=== PATIENT | female | born 1950 | race Caucasian/White ===

== ENCOUNTER 2016-06-23 08:53 | Outpatient (CLI) | payer BC | END 2016-06-23 08:54 | disposition home or self-care (01) | DX: R07.89 Other chest pain (principal); E78.5 Hyperlipidemia, unspecified ==

== ENCOUNTER 2016-07-27 09:45 | Outpatient (CLI) | payer BC | END 2016-07-27 09:46 | disposition home or self-care (01) | DX: R07.89 Other chest pain (principal); E78.5 Hyperlipidemia, unspecified ==

== ENCOUNTER 2017-07-12 08:00 | Outpatient (CLI) | payer BC, OTHER ==
[2017-07-12 18:10] LABS: H. PYLORIS ANTIGEN STL NEGATIVE (Negative)
== END 2017-07-12 08:01 | disposition home or self-care (01) ==
LOC: LAB.R 08:00
PROVIDERS: ATTEND Family Medicine
DX: K21.9 Gastro-esophageal reflux disease without esophagitis (principal)
CPT/HCPCS: 87338

== ENCOUNTER 2017-09-13 09:44 | Outpatient (CLI) | payer OTHER ==
[2017-09-13 18:19] LABS: ALBUMIN 4.1 g/dL (3.2-5.5); ALBUMIN/GLOBULIN RATIO 1.4 (1.0-2.2); BILIRUBIN,TOTAL 0.2 mg/dL (0.2-1.0); CALCIUM 9.3 mg/dL (8.5-10.3); CREATININE 0.6 mg/dL (0.4-1.0); TOTAL PROTEIN 7.1 g/dL (6.7-8.2)
[2017-09-13 18:22] LABS: BASOPHILS # (AUTO) 0.1 10^3/uL (0.0-0.1); BASOPHILS % (AUTO) 0.9 %; EOSINOPHILS # (AUTO) 0.2 10^3/uL (0.0-0.7); EOSINOPHILS % (AUTO) 3.1 %; HGB - HEMOGLOBIN 13.1 g/dL (12.0-16.0); LYMPHOCYTES # (AUTO) 2.7 10^3/uL (1.5-3.5); LYMPHOCYTES % (AUTO) 38.6 %; MEAN CORPUSCULAR HEMOGLOBIN 31.2 pg (27.0-31.0); MEAN CORPUSCULAR VOLUME 94.7 fL (81.0-99.0); MEAN PLATELET VOLUME 7.6 fL (7.9-10.8); MONOCYTES # (AUTO) 0.4 10^3/uL (0.0-1.0); MONOCYTES % (AUTO) 6.5 %; NEUTROPHILS # (AUTO) 3.5 10^3/uL (1.5-6.6); NEUTROPHILS % (AUTO) 50.9 %; PLT - PLATELET COUNT 320 10^3/uL (130-450); RED BLOOD COUNT 4.18 10^6/uL (4.20-5.40); WHITE BLOOD COUNT 6.9 x10^3/uL (4.8-10.8)
== END 2017-09-13 09:45 | disposition home or self-care (01) ==
LOC: LAB.F 09:44
PROVIDERS: ATTEND Physician Assistant Medical
DX: Z51.81 Encounter for therapeutic drug level monitoring (principal); Z79.890 Hormone replacement therapy
CPT/HCPCS: 36415; 80053; 82670; 85025

== ENCOUNTER 2017-11-27 11:26 | Outpatient (CLI) | payer OTHER | END 2017-11-27 11:27 | disposition home or self-care (01) | LOC: LAB.F 11:26 | PROVIDERS: ATTEND Internal Medicine | DX: K21.9 Gastro-esophageal reflux disease without esophagitis (principal) | CPT/HCPCS: 36415; 83516 ==

== ENCOUNTER 2018-03-27 13:02 | Outpatient (CLI) | payer OTHER ==
[2018-03-27 18:10] LABS: BASOPHILS % (AUTO) 0.5 %; EOSINOPHILS # (AUTO) 0.1 10^3/uL (0.0-0.7); EOSINOPHILS % (AUTO) 1.6 %; HGB - HEMOGLOBIN 14.1 g/dL (12.0-16.0); LYMPHOCYTES # (AUTO) 2.5 10^3/uL (1.5-3.5); LYMPHOCYTES % (AUTO) 28.4 %; MEAN CORPUSCULAR HEMOGLOBIN 32.1 pg (27.0-31.0); MEAN CORPUSCULAR HGB CONC 33.8 g/dL (32.0-36.0); MEAN CORPUSCULAR VOLUME 94.8 fL (81.0-99.0); MEAN PLATELET VOLUME 7.9 fL (7.9-10.8); MONOCYTES # (AUTO) 0.6 10^3/uL (0.0-1.0); MONOCYTES % (AUTO) 6.3 %; NEUTROPHILS # (AUTO) 5.5 10^3/uL (1.5-6.6); NEUTROPHILS % (AUTO) 63.2 %; PLT - PLATELET COUNT 328 10^3/uL (130-450); RED CELL DISTRIBUTION WIDTH 13.4 % (12.0-15.0); WHITE BLOOD COUNT 8.8 x10^3/uL (4.8-10.8)
[2018-03-27 18:21] LABS: ALBUMIN 4.5 g/dL (3.2-5.5); ALBUMIN/GLOBULIN RATIO 1.6 (1.0-2.2); BILIRUBIN,TOTAL 0.4 mg/dL (0.2-1.0); CALCIUM 9.4 mg/dL (8.5-10.3); CREATININE 0.6 mg/dL (0.4-1.0); TOTAL PROTEIN 7.4 g/dL (6.7-8.2)
== END 2018-03-27 13:03 | disposition home or self-care (01) ==
LOC: LAB.F 13:02
PROVIDERS: ATTEND Physician Assistant Medical
DX: I10 Essential (primary) hypertension (principal)
CPT/HCPCS: 36415; 80053; 85025

== ENCOUNTER 2018-04-24 13:23 | Outpatient (CLI) | payer OTHER | END 2018-04-24 13:24 | disposition home or self-care (01) | LOC: LAB.F 13:23 | PROVIDERS: ATTEND Physician Assistant Medical | DX: R51 Headache (principal); I10 Essential (primary) hypertension | CPT/HCPCS: 36415; 84443 ==

== ENCOUNTER 2019-01-13 | Outpatient (CLI) | payer OTHER | END 2019-01-13 08:23 | disposition home or self-care (01) ==

== ENCOUNTER 2019-01-17 09:18 | Outpatient (CLI) | payer OTHER ==
--- NOTE | 2019-01-20 08:32 | DEXA Report ---
Reason: POSTMENOPAUSAL STATUS Procedure Date: 01/17/2019 Accession Number: [id number] / [id number] Procedure: DEX - Dexa Spine and/or Hip CPT Code: FULL RESULT: EXAM: Dexa Spine and/or Hip DATE: 01/17/2019 10:20 AM CLINICAL HISTORY: POSTMENOPAUSAL STATUS TECHNIQUE: Dual energy x-ray absorptiometry (DXA) was performed on a E-Blink System. Regions measured are the AP Spine, femoral neck, and if needed forearm. COMPARISON: None. In accordance with the International Society for Clinical Densitometry (ISCD) guidelines, data from previous exams may be reanalyzed using current recommendations and techniques. This is done to allow a more accurate basis for comparison with the current study. FINDINGS: The data for the lumbar spine is as follows: BMD (g/cm/cm) T-SCORE Z-SCORE REGION L1 1.169 0.3 2.1 L2 1.518 2.6 4.4 L3 1.607 3.4 5.2 L4 1.497 2.5 4.2 TOTAL 1.451 2.3 4.0 NOTE: All evaluable vertebrae are used for classification The data for the hip is as follows: BMD (g/cm/cm) T-SCORE Z-SCORE REGION Neck 0.887 -1.1 0.6 TOTAL 0.889 -0.9 0.5 NOTE: The femoral neck or total proximal femur, whichever is lowest, is used for classification. IMPRESSION: THE WHO CLASSIFICATION BASED ON THE INTERNATIONAL REFERENCE STANDARD IS OSTEOPENIA. THE FRACTURE RISK IS INCREASED. RECOMMENDATION: Patients with diagnosis of osteoporosis or osteopenia should have regular bone mineral density assessment. For those eligible for Medicare, routine testing is allowed once every 2 years. Testing frequency can be increased for patients who have rapidly progressing disease or for those who are receiving medical therapy to restore bone mass. COMMENT: World Health Organization (WHO) definitions for osteoporosis and osteopenia: NORMAL BMD: T-score at -1.0 or higher, fracture risk is low OSTEOPENIA BMD: T-score between -1.0 and -2.5, fracture risk is increased. OSTEOPOROSIS BMD: T-score at -2.5 or lower, fracture risk is high. National Osteoporosis Foundation recommends: 1. Obtain adequate dietary calcium (at least 1200 mg per day) and vitamin D (400-800 international units per day). 2. Participate, as appropriate, in regular weightbearing and muscle-strengthening exercise. 3. Avoid tobacco use and reduce alcohol and caffeine intake. 4. For more detailed information see the website at www.NOF.org.
== END 2019-01-17 09:19 | disposition home or self-care (01) ==
LOC: DI 09:18
PROVIDERS: ATTEND Physician Assistant Medical
DX: M85.88 Other specified disorders of bone density and structure, other site (principal)
CPT/HCPCS: 77080

== ENCOUNTER 2019-04-29 11:22 | Outpatient (CLI) | payer OTHER | END 2019-04-29 11:23 | disposition home or self-care (01) | LOC: LAB.S 11:22 | PROVIDERS: ATTEND Physician Assistant Medical | DX: Z79.890 Hormone replacement therapy (principal) | CPT/HCPCS: 36415; 82670 ==

== ENCOUNTER 2019-07-11 13:38 | Outpatient (CLI) | payer MEDICARE ==
[2019-07-11 18:45] LABS: FERRITIN 42.1 ng/mL (11.0-306.8)
[2019-07-11 18:54] LABS: % IRON SATURATION 26 % (20-50); IRON 96 ug/dL (28-170); TOTAL IRON BINDING CAPACITY 365 ug/dL (250-450); TRANSFERRIN 261 mg/dL (192-382)
== END 2019-07-11 13:39 | disposition home or self-care (01) ==
LOC: LAB.S 13:38
PROVIDERS: ATTEND Physician Assistant Medical
DX: Z00.00 Encounter for general adult medical examination without abnormal findings (principal); Z51.81 Encounter for therapeutic drug level monitoring; Z79.899 Other long term (current) drug therapy; K21.9 Gastro-esophageal reflux disease without esophagitis; Z77.111 Contact with and (suspected) exposure to water pollution
CPT/HCPCS: 36415; 81599; 82175; 82306; 82607; 82728; 83540; 83655; 83825; 84466

== ENCOUNTER 2020-02-26 09:43 | Outpatient (CLI) | payer MEDICARE ==
[2020-02-26 15:38] LABS: BASOPHILS # (AUTO) 0.1 10^3/uL (0.0-0.1); BASOPHILS % (AUTO) 0.7 %; EOSINOPHILS # (AUTO) 0.2 10^3/uL (0.0-0.7); EOSINOPHILS % (AUTO) 3.4 %; HGB - HEMOGLOBIN 13.1 g/dL (12.0-16.0); LYMPHOCYTES # (AUTO) 3.1 10^3/uL (1.5-3.5); MEAN CORPUSCULAR HGB CONC 32.3 g/dL (32.0-36.0); MEAN PLATELET VOLUME 9.1 fL (7.9-10.8); MONOCYTES # (AUTO) 0.5 10^3/uL (0.0-1.0); MONOCYTES % (AUTO) 7.5 %; NEUTROPHILS # (AUTO) 3.2 10^3/uL (1.5-6.6); NEUTROPHILS % (AUTO) 45.3 %; PLT - PLATELET COUNT 354 10^3/uL (130-450); RED BLOOD COUNT 4.22 10^6/uL (4.20-5.40); RED CELL DISTRIBUTION WIDTH 13.2 % (12.0-15.0); WHITE BLOOD COUNT 7.1 x10^3/uL (4.8-10.8)
[2020-02-26 15:52] LABS: ALBUMIN 3.8 g/dL (3.2-5.5); ALBUMIN/GLOBULIN RATIO 1.2 (1.0-2.2); ALKALINE PHOSPHATASE 56 IU/L (42-121); ALT ALANINE AMINOTRANSFERASE 17 IU/L (10-60); AST ASPARTATE AMINOTRANSFERASE 19 IU/L (10-42); BILIRUBIN,TOTAL 0.6 mg/dL (0.2-1.0); BUN - BLOOD UREA NITROGEN 14 mg/dL (6-20); CALCIUM 9.6 mg/dL (8.5-10.3); CARBON DIOXIDE - CO2 31 mmol/L (21-32); CHLORIDE 100 mmol/L (101-111); CHOL/HDL RATIO 2.4 (<4.4); CHOLESTEROL 257 mg/dL; CREATININE 0.6 mg/dL (0.4-1.0); GLUCOSE 98 mg/dL (70-100); HDL CHOLESTEROL 109 mg/dL; LDL CHOLESTEROL,CALCULATED 124 mg/dL; LDL/HDL RATIO 1.1 (<4.4); SODIUM 139 mmol/L (135-145); VLDL CHOLESTEROL 24 mg/dL
== END 2020-02-26 09:44 | disposition home or self-care (01) ==
LOC: LAB.S 09:43
PROVIDERS: ATTEND Registered Nurse
DX: I10 Essential (primary) hypertension (principal); J45.40 Moderate persistent asthma, uncomplicated; G47.33 Obstructive sleep apnea (adult) (pediatric); E78.5 Hyperlipidemia, unspecified
CPT/HCPCS: 36415; 80053; 80061; 83721; 84443; 85025

== ENCOUNTER 2020-04-20 10:47 | Outpatient (CLI) | payer MEDICARE | END 2020-04-20 10:48 | disposition home or self-care (01) | LOC: COV 10:47 | PROVIDERS: ATTEND Family Medicine | DX: R05 Cough (principal); J02.9 Acute pharyngitis, unspecified; R09.81 Nasal congestion; Z20.828 Contact with and (suspected) exposure to other viral communicable diseases ==

== ENCOUNTER 2020-05-18 13:42 | Outpatient (CLI) | payer MEDICARE ==
[2020-05-18 20:19] LABS: % IRON SATURATION 23 % (20-50); IRON 81 ug/dL (28-170); TOTAL IRON BINDING CAPACITY 351 ug/dL (250-450); TRANSFERRIN 251 mg/dL (192-382)
[2020-05-18 20:28] LABS: FERRITIN 32.4 ng/mL (11.0-306.8)
== END 2020-05-18 13:43 | disposition home or self-care (01) ==
LOC: LAB.S 13:42
PROVIDERS: ATTEND Registered Nurse
DX: K12.0 Recurrent oral aphthae (principal); E55.9 Vitamin D deficiency, unspecified; M85.80 Other specified disorders of bone density and structure, unspecified site; E78.5 Hyperlipidemia, unspecified
CPT/HCPCS: 36415; 82306; 82607; 82728; 83540; 84466

== ENCOUNTER 2020-11-04 10:52 | Outpatient (CLI) | payer MEDICARE ==
--- NOTE | 2020-11-04 13:52 | XRAY Report ---
PROCEDURE: Foot 3 View RT INDICATIONS: HISTORY OF 4TH MT FX RT FOOT,SWOLLEN TECHNIQUE: 3 views of the foot were acquired. COMPARISON: none FINDINGS: Bones: Healing fracture in the mid fourth metatarsal. No change in alignment. No suspicious bony le sions. Soft tissues: No tibiotalar joint effusion. Achilles tendon appears normal. IMPRESSION: Stable alignment of healing fourth metatarsal fracture. Reviewed by: Clarisse De MD on 11/04/2020 1:50 PM PDT Approved by: Clarisse De MD on 11/04/2020 1:50 PM PDT Station ID: [id number]
== END 2020-11-04 10:53 | disposition home or self-care (01) ==
LOC: DI 10:52
PROVIDERS: ATTEND Podiatrist
DX: S92.341D Displaced fracture of fourth metatarsal bone, right foot, subsequent encounter for fracture with routine healing (principal)

== ENCOUNTER 2020-12-22 12:18 | Outpatient (CLI) | payer MEDICARE ==
--- NOTE | 2020-12-22 12:53 | XRAY Report ---
PROCEDURE: Foot 3 View RT INDICATIONS: FX 4TH MT TECHNIQUE: 3 views of the foot were acquired. COMPARISON: 11/04/2020 FINDINGS: Bones: There is interval healing at the fourth metatarsal shaft fracture site with sclerotic changes. No new fracture or dislocation. Right foot alignment is anatomic and is unchanged from prior study. Osteoarthritic changes throughout right foot is seen most prominent involving first MTP joint. No av picious bony lesions. Soft tissues: No tibiotalar joint effusion. Achilles tendon appears normal. IMPRESSION: Healing at fourth metatarsal shaft fracture site with anatomic right foot alignment. No new fracture or dislocation. Right foot osteoarthritis. Reviewed by: Carlton Moss MD on 12/22/2020 12:52 PM PDT Approved by: Carlton Moss MD on 12/22/2020 12:52 PM PDT Station ID: [id number]
== END 2020-12-22 12:19 | disposition home or self-care (01) ==
LOC: DI 12:18
PROVIDERS: ATTEND Podiatrist
DX: S92.341D Displaced fracture of fourth metatarsal bone, right foot, subsequent encounter for fracture with routine healing (principal)

== ENCOUNTER 2021-02-16 11:18 | Outpatient (CLI) | payer MEDICARE ==
--- NOTE | 2021-02-16 12:10 | XRAY Report ---
PROCEDURE: Foot 2 View RT INDICATIONS: HAMMER TOE/ RIGHT FOOT PAIN TECHNIQUE: 2 views of the foot were acquired. COMPARISON: Right foot radiographs 12/22/2020 FINDINGS: Bones: The previously seen proximal fourth metatarsal shaft fracture demonstrates continued healing c hanges with periosteal new bone formation and decreased prominence of the fracture line, with probabl e partial osseous bridging. Moderate degenerative changes are seen at the first metatarsophalangeal j oint. Scattered mild degenerative changes are seen at the interphalangeal joints of the toes. Hammert oe deformity is seen at the second digit, although these are nonweightbearing radiographs and weightb earing alignment cannot be confirmed. No suspicious bony lesions. Tiny plantar calcaneal spur. Soft tissues: No suspicious soft tissue calcifications. IMPRESSION: 1. Progressive healing changes involving the fourth metatarsal shaft fracture with at least partial osseous bridging. 2. Moderate first metatarsophalangeal osteoarthrosis. 3. Hammertoe deformity of the second digit. Reviewed by: Ned Carrion MD on 02/16/2021 12:08 PM PDT Approved by: Ned Carrion MD on 02/16/2021 12:08 PM PDT Station ID: [id number]
== END 2021-02-16 11:19 | disposition home or self-care (01) ==
LOC: DI 11:18
PROVIDERS: ATTEND Registered Nurse
DX: M20.41 Other hammer toe(s) (acquired), right foot (principal); S92.341D Displaced fracture of fourth metatarsal bone, right foot, subsequent encounter for fracture with routine healing; M19.071 Primary osteoarthritis, right ankle and foot

== ENCOUNTER 2021-03-24 08:16 | Outpatient (CLI) | payer MEDICARE ==
[2021-03-24 14:44] LABS: BASOPHILS # (AUTO) 0.1 10^3/uL (0.0-0.1); EOSINOPHILS # (AUTO) 0.2 10^3/uL (0.0-0.7); EOSINOPHILS % (AUTO) 3.5 %; HCT - HEMATOCRIT 40.5 % (37.0-47.0); HGB - HEMOGLOBIN 13.2 g/dL (12.0-16.0); LYMPHOCYTES # (AUTO) 2.9 10^3/uL (1.5-3.5); LYMPHOCYTES % (AUTO) 41.7 %; MEAN CORPUSCULAR HEMOGLOBIN 31.5 pg (27.0-31.0); MEAN CORPUSCULAR HGB CONC 32.6 g/dL (32.0-36.0); MEAN CORPUSCULAR VOLUME 96.7 fL (81.0-99.0); MEAN PLATELET VOLUME 9.2 fL (7.9-10.8); MONOCYTES # (AUTO) 0.6 10^3/uL (0.0-1.0); MONOCYTES % (AUTO) 8.6 %; NEUTROPHILS # (AUTO) 3.1 10^3/uL (1.5-6.6); NEUTROPHILS % (AUTO) 44.9 %; PLT - PLATELET COUNT 363 10^3/uL (130-450); RED BLOOD COUNT 4.19 10^6/uL (4.20-5.40); RED CELL DISTRIBUTION WIDTH 13.8 % (12.0-15.0); WHITE BLOOD COUNT 6.8 x10^3/uL (4.8-10.8)
[2021-03-24 15:17] LABS: THYROID STIMULATING HORMONE 4.09 uIU/mL (0.34-5.60)
[2021-03-24 15:18] LABS: ALBUMIN 3.8 g/dL (3.2-5.5); ALBUMIN/GLOBULIN RATIO 1.2 (1.0-2.2); ALKALINE PHOSPHATASE 66 IU/L (42-121); ALT ALANINE AMINOTRANSFERASE 22 IU/L (10-60); AST ASPARTATE AMINOTRANSFERASE 21 IU/L (10-42); BILIRUBIN,TOTAL 0.8 mg/dL (0.2-1.0); BUN - BLOOD UREA NITROGEN 15 mg/dL (6-20); CALCIUM 9.2 mg/dL (8.5-10.3); CARBON DIOXIDE - CO2 30 mmol/L (21-32); CHLORIDE 100 mmol/L (101-111); CHOL/HDL RATIO 2.4 (<4.4); CHOLESTEROL 264 mg/dL; CREATININE 0.7 mg/dL (0.4-1.0); GFR - MDRD 83 (>89); GLUCOSE 103 mg/dL (70-100); HDL CHOLESTEROL 111 mg/dL; LDL CHOLESTEROL,CALCULATED 132 mg/dL; LDL/HDL RATIO 1.2 (<4.4); POTASSIUM 4.9 mmol/L (3.5-5.0); SODIUM 137 mmol/L (135-145); TOTAL PROTEIN 6.9 g/dL (6.7-8.2); TRIGLYCERIDES 104 mg/dL; VLDL CHOLESTEROL 21 mg/dL
== END 2021-03-24 08:17 | disposition home or self-care (01) ==
LOC: LAB.S 08:16
PROVIDERS: ATTEND Registered Nurse
DX: I10 Essential (primary) hypertension (principal); J45.40 Moderate persistent asthma, uncomplicated; G47.33 Obstructive sleep apnea (adult) (pediatric); E78.5 Hyperlipidemia, unspecified
CPT/HCPCS: 36415; 80053; 80061; 83721; 84443; 85025

== ENCOUNTER 2021-04-07 13:33 | Outpatient (CLI) | payer MEDICARE ==
--- NOTE | 2021-04-07 14:54 | XRAY Report ---
PROCEDURE: Foot 3 View RT INDICATIONS: FRACTURE OF THE 4TH METATARSAL OF THE RIGHT FOOT TECHNIQUE: 3 views of the foot were acquired. COMPARISON: 02/16/2021 plain films. FINDINGS: Bones: No fractures or dislocations. No suspicious bony lesions. Mild joint space narrowing and pe riarticular osteophyte formation at the first metatarsophalangeal joint. Healing proximal fourth meta tarsal fracture. Soft tissues: No tibiotalar joint effusion. Achilles tendon appears normal. IMPRESSION: Healing fourth metatarsal fracture. Reviewed by: Natalio Navarro MD on 04/07/2021 2:53 PM PDT Approved by: Natalio Navarro MD on 04/07/2021 2:53 PM PDT Station ID: [id number]
== END 2021-04-07 13:34 | disposition home or self-care (01) ==
LOC: DI 13:33
PROVIDERS: ATTEND Podiatrist
DX: S92.344A Nondisplaced fracture of fourth metatarsal bone, right foot, initial encounter for closed fracture (principal)

== ENCOUNTER 2022-05-03 08:48 | Emergency (ER) | payer MEDICARE ==
--- OUTSIDE RECORDS SUMMARY | 2022-05-03 09:32 | EXTERNAL MEDICAL SUMMARY RPT | Continuity of Care Document ---
:1950 Author Organization [facility] Address [address] [place] [address] Phone Care Team Providers Name Role Phone Sheeba Rob Unavailable Unavailable Allergies No information. Encounters No information. Functional Status No information. Immunizations No information. Medications date description facility [id number] fluticasone propionate [facility] [phone] fluticasone propionate [facility] [phone] fluticasone propionate [facility] [phone] fluticasone propionate [facility] Problems No information. Procedures No information. Results/Labs No information. Social History No information. Vital Signs No information.
[2022-05-03] MEDS ORDERED: IPRATROPIUM/ALBUTEROL 3 ML NEB INH STA (11:37)
[2022-05-03] MEDS ORDERED: DEXAMETHASONE 10 MG/ML VIAL IM STA (11:37)
--- NOTE | 2022-05-03 11:39 | XRAY Report ---
PROCEDURE: Chest 2 View X-Ray INDICATIONS: dyspnea TECHNIQUE: 2 views of the chest were acquired. COMPARISON: None. FINDINGS: Surgical changes and devices: None. Lungs and pleura: No pleural effusions or pneumothorax. Lungs are clear. Mediastinum: Mediastinal contours are normal. Heart size is normal. Bones and chest wall: No suspicious bony abnormalities. Soft tissues appear unremarkable. IMPRESSION: No acute cardiopulmonary abnormality. No foreign body identified. CT of the chest could be considered for further evaluation. Reviewed by: Davey Harris MD on 05/03/2022 11:37 AM [facility] Approved by: Davey Harris MD on 05/03/2022 11:37 AM [facility] Station ID: [id number]
[2022-05-03 13:30] VITALS: BP 109/78
--- NOTE | 2022-05-03 13:34 | ED Physician Documentation ---
History of Present Illness - Stated complaint Stated Complaint: CHEST PX/WHEEZING - Chief complaint Chief Complaint: Resp - History obtained from History obtained from: Patient - Additonal information Additional information: The patient comes to the emergency department chief complaint of wheezing and cough since accidentally inhaling a vitamin capsule a few days ago. She states it was full of vitamin E oil, and she figured that it would just dissolve and ultimately get expectorated. However, the patient has noticed increasing wheezing and coughing since this occurred. She denies any fevers or chills. Mild sputum production. The patient states she has a history of reactive airway disease and does have an inhaler at home which she has tried using. 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 She states it might of helped a little but not much. Both of these were yesterday. Review of Systems Ten Systems: 10 systems reviewed and negative Constitutional: reports: Reviewed and negative Eyes: reports: Reviewed and negative Ears: reports: Reviewed and negative Nose: reports: Reviewed and negative Throat: reports: Reviewed and negative Cardiac: reports: Reviewed and negative Respiratory: reports: Cough, Wheezing GI: reports: Reviewed and negative : reports: Reviewed and negative Skin: reports: Reviewed and negative Musculoskeletal: reports: Reviewed and negative Neurologic: reports: Reviewed and negative Psychiatric: reports: Reviewed and negative Endocrine: reports: Reviewed and negative Immunocompromised: reports: Reviewed and negative PD PAST MEDICAL HISTORY - Past Medical History Cardiovascular: High cholesterol Respiratory: Asthma HEENT: Chronic hearing loss, Other Musculoskeletal: Osteoarthritis - Past Surgical History Ortho: Knee replacement, 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: Other HEENT: Other - Present Medications Home Medications: Ambulatory Orders Medication Instructions Recorded Confirmed Albuterol Sulf [Ventolin Hfa 1 - 2 puffs INH Q4HR PRN #1 each 05/03/22 Inhaler] predniSONE [Deltasone] 60 mg PO DAILY 5 Days #15 tablet 05/03/22 - Allergies Allergies/Adverse Reactions: Allergies Allergy/AdvReac Type Severity Reaction Status Date / Time No Known Drug Allergies Allergy Verified 05/03/22 09:08 PD ED PE NORMAL - Vitals Vital signs reviewed: Yes - General General: Alert and oriented X 3, No acute distress, Well developed/nourished - HEENT HEENT: Atraumatic, PERRL, EOMI, Moist mucous membranes - Neck Neck: Supple, no meningeal sign - Cardiac Cardiac: RRR, No murmur, Strong equal pulses - Respiratory Respiratory: No respiratory distress, Other (Coarse respirations, which progressed to actual wheezes in the right middle and lower lobes. Good air movement throughout all lung maravilla.) - Abdomen Abdomen: Soft, Non tender, Non distended - Derm Derm: Warm and dry - Extremities Extremities: No deformity - Neuro Neuro: Alert and oriented X 3 - Psych Psych: Normal mood, Normal affect Results - Vitals Vitals: Vital Signs - 24 hr 05/03/22 05/03/22 05/03/22 09:04 11:07 13:29 Temperature 36.1 C L Heart Rate 108 H 78 95 Respiratory 16 16 15 Rate Blood Pressure 136/58 H 122/79 109/78 O2 Saturation 95 98 100 Oxygen O2 Source Room air - Rads (name of study) Chest x-ray Radiology: Final report received, EMP read indepedently, See rad report (Negative) PD MEDICAL DECISION MAKING - ED course Complexity details: reviewed results, re-evaluated patient, considered differential, d/w patient ED course: The patient was treated with a DuoNeb and IM Decadron, and was found to be feeling better after this. I discussed with her that there is no evidence of aspiration or postobstructive pneumonia or atelectasis. We will prescribe a refill of her albuterol inhaler and a course of steroids. We discussed the usual indications for follow-up and return. Departure - Departure Disposition: 01 Home, Self Care Clinical Impression: Reactive airway disease with acute exacerbation Qualifiers: Asthma severity: mild Asthma persistence: intermittent Qualified Code(s): J45 .21 - Mild intermittent asthma with (acute) exacerbation Condition: Stable Instructions: ED Reactive Airway Disease Prescriptions: Albuterol Sulf [Ventolin Hfa Inhaler] 1 - 2 puffs INH Q4HR PRN #1 each PRN Reason: Shortness Of Air/Wheezing predniSONE [Deltasone] 60 mg PO DAILY 5 Days #15 tablet Comments: Your x-ray was read as negative by the radiologist. You do have some wheezes that are more pronounced in your right middle and lower lung maravilla, but you are moving air well. There is no evidence of either aspiration pneumonia or postobstructive pneumonia or atelectasis at this time. Please use your inhaler up to 2 puffs every 4 hours as needed, and take the prednisone as directed until the course is complete. If you continue to have respiratory issues, you should talk to your doctor about a referral to pulmonology. If you develop difficulty breathing or a fever and productive cough, please return to the emergency department. Your prescriptions have been electronically transmitted to the [facility] pharmacy in [place]
== END 2022-05-03 14:05 | disposition home or self-care (01) ==
LOC: ED 08:48
DX: J45.21 Mild intermittent asthma with (acute) exacerbation (principal)
CPT/HCPCS: 93005; 94640; 96372; 99284

== ENCOUNTER 2022-05-10 16:07 | Emergency (ER) | payer MEDICARE ==
--- OUTSIDE RECORDS SUMMARY | 2022-05-10 16:38 | EXTERNAL MEDICAL SUMMARY RPT | Continuity of Care Document ---
:1950 Author Organization [facility] Address [address] [place] [address] Phone Care Team Providers Name Role Phone Sheeba Rob Unavailable Unavailable Allergies No information. Encounters No information. Functional Status No information. Immunizations No information. Medications date description facility [phone] fluticasone propionate [facility] [phone] fluticasone propionate [facility] [phone] fluticasone propionate [facility] [phone] fluticasone propionate [facility] Problems No information. Procedures No information. Results/Labs No information. Social History No information. Vital Signs No information.
--- NOTE | 2022-05-10 16:56 | XRAY Report ---
PROCEDURE: Chest 1 View X-Ray INDICATIONS: cough TECHNIQUE: One view of the chest was acquired. COMPARISON: None. FINDINGS: Surgical changes and devices: None. Lungs and pleura: Mildly hyperinflated lungs with coarse interstitial markings. No visible lobar or subsegmental atelectatic changes. No consolidations, effusion, or pneumothorax. Mediastinum: Mediastinal contours appear normal. Heart size is normal. Slightly prominent central pulmonary arteries. No central venous congestion. Bones and chest wall: No suspicious bony lesions. Overlying soft tissues appear unremarkable. IMPRESSION: 1. No acute cardiopulmonary disease. 2. Findings suggestive of emphysema or asthma. Reviewed by: Tammy Arita MD on 05/10/2022 4:55 PM PST Approved by: Tammy Arita MD on 05/10/2022 4:55 PM PST Station ID: [id number]
[2022-05-10 20:02] VITALS: BP 143/77
[2022-05-10] MEDS ORDERED: AZITHROMYCIN 250 MG TABLET PO STA (20:09)
--- NOTE | 2022-05-10 20:26 | ED Physician Documentation ---
PD HPI DYSPNEA - Stated complaint Stated Complaint: SOA,PRODUCTIVE COUGH - Chief complaint Chief Complaint: Resp - History obtained from History obtained from: Patient - Additional information Additional information: The patient returns to the emergency department for chief complaint of worsening productive cough after being seen last week for the same. At that time, the patient had felt the symptoms were precipitated by accidentally inhaling a vitamin oil gelcap. X-ray at that time had been negative, though patient was found to have some wheezing. She was placed on prednisone in addition to her home inhalers. She states that the course of prednisone helped things a bit but she then began to have productive cough with thick green sputum after the steroid course was done. The patient states that she has not had a fever but she is felt just a little bit rundown. No other complaints at this time. No shortness of breath. Review of Systems Ten Systems: 10 systems reviewed and negative Constitutional: reports: Reviewed and negative Eyes: reports: Reviewed and negative Ears: reports: Reviewed and negative Nose: reports: Reviewed and negative Throat: reports: Reviewed and negative Cardiac: reports: Reviewed and negative Respiratory: reports: Cough, Wheezing GI: reports: Reviewed and negative : reports: Reviewed and negative Skin: reports: Reviewed and negative Musculoskeletal: reports: Reviewed and negative Neurologic: reports: Reviewed and negative Psychiatric: reports: Reviewed and negative Endocrine: reports: Reviewed and negative Immunocompromised: reports: Reviewed and negative PD PAST MEDICAL HISTORY - Past Medical History Cardiovascular: High cholesterol Respiratory: Asthma HEENT: Chronic hearing loss, Other Musculoskeletal: Osteoarthritis - Past Surgical History 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 replacement, 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: Other - Present Medications Home Medications: Ambulatory Orders Medication Instructions Recorded Confirmed Albuterol Sulf [Ventolin Hfa 1 - 2 puffs INH Q4HR PRN #1 each 05/03/22 05/10/22 Inhaler] predniSONE [Deltasone] 60 mg PO DAILY 5 Days #15 tablet 05/03/22 05/10/22 Azithromycin [Zithromax] 0 mg PO DAILY #6 tablet 05/10/22 Fluticasone Propion/Salmeterol 1 puffs INH DAILY 05/10/22 05/10/22 [Wixela 100-50 Inhub] Fluticasone Propion/Salmeterol 1 each IH DAILY #1 each 05/10/22 [Wixela 250-50 Inhub] Lisinopril [Zestril] 10 mg PO DAILY PM 05/10/22 05/10/22 - Allergies Allergies/Adverse Reactions: Allergies Allergy/AdvReac Type Severity Reaction Status Date / Time No Known Drug Allergies Allergy Verified 05/10/22 16:35 PD ED PE NORMAL - Vitals Vital signs reviewed: Yes - General General: Alert and oriented X 3, No acute distress, Well developed/nourished - HEENT HEENT: Atraumatic, PERRL, EOMI, Moist mucous membranes - Neck Neck: Supple, no meningeal sign - Cardiac Cardiac: RRR, No murmur, Strong equal pulses - Respiratory Respiratory: No respiratory distress, Other (Inspiratory and expiratory wheezes throughout the right lung, worse in the midlung field. Very mild inspiratory and expiratory wheezes on the left diffusely, as well.) - Abdomen Abdomen: Soft, Non tender, Non distended - Derm Derm: Warm and dry - Extremities Extremities: No deformity - Neuro Neuro: Alert and oriented X 3 - Psych Psych: Normal mood, Normal affect Results - Vitals Vitals: Vital Signs - 24 hr 05/10/22 05/10/22 05/10/22 16:31 19:57 20:01 Temperature 36.4 C L 36.2 C L Heart Rate 93 100 Respiratory 18 15 15 Rate Blood Pressure 108/79 143/77 H O2 Saturation 98 99 Oxygen O2 Source Room air - Rads (name of study) Chest x-ray Radiology: Final report received, EMP read indepedently, See rad report (No acute findings) PD MEDICAL DECISION MAKING - ED course Complexity details: reviewed results, re-evaluated patient, considered differential, d/w patient ED course: I discussed with the patient that once again, her x-ray really does not show much. Given that she did inhale foreign material and a week later, now has a strongly productive cough, I feel that she should be placed on antibiotics. I have emphasized to her though that if the antibiotics fail to clear up the symptoms, or if the patient has relief of symptoms but then they recur after the course is complete, that it is important that she follows up in a timely manner with her primary doctor to be scheduled for a CT of the chest and potentially a pulmonology consult, to determine whether something more serious is going on. Departure - Departure Disposition: 01 Home, Self Care Clinical Impression: Bronchitis Condition: Stable Instructions: ED Upper Resp Infec Abx Tx Prescriptions: Fluticasone Propion/Salmeterol [Wixela 250-50 Inhub] 1 each IH DAILY #1 each Azithromycin [Zithromax] 0 mg PO DAILY #6 tablet Comments: Your x-ray still is normal. You have been started on antibiotics for presumed bronchitis. You have been given the first dose here in the emergency department and will need your next dose tomorrow. Your prescriptions of been electronically transmitted to the [facility] in [place]. If the antibiotics fail to clear up your symptoms, or if your symptoms recur after the antibiotic course is complete, you will need to talk to your primary doctor ab out getting a CT scan done for further clarification of what is going on. You may also need a pulmonology consultation, as well. Please plan to make a follow-up appointment with your doctor to sort this out after your antibiotics are complete.
== END 2022-05-10 20:37 | disposition home or self-care (01) ==
LOC: ED 16:07
DX: J40 Bronchitis, not specified as acute or chronic (principal)
CPT/HCPCS: 71045; 99282; 99283; A9270

== ENCOUNTER 2023-04-25 10:12 | Outpatient (CLI) | payer MEDICARE | END 2023-04-25 10:13 | disposition critical access hospital (66) | LOC: EMS 10:12 | DX: R41.82 Altered mental status, unspecified (principal); R11.2 Nausea with vomiting, unspecified; R42 Dizziness and giddiness; R53.83 Other fatigue | CPT/HCPCS: A0425; A0427 ==

== ENCOUNTER 2023-04-25 10:43 | Observation (INO) | payer MEDICARE ==
[2023-04-25] MEDS ORDERED: SODIUM CHLORIDE 0.9% 1,000 ML IV STA ×2 (11:09→13:32)
--- NOTE | 2023-04-25 11:14 | ED Physician Documentation ---
History of Present Illness - Stated complaint Stated Complaint: AMS - Chief complaint Chief Complaint: Neuro - History obtained from History obtained from: Patient, EMS - Additonal information Additional information: The patient is brought to the emergency department by EMS for chief complaint of altered level of consciousness. The patient has had a viral type illness over the last couple of days with a little bit of vomiting and diarrhea. She went to bed early last night around 7:00 in the evening and her told the medics that she seemed like her normal self, perhaps just mildly ill. The patient has not had any fevers or chills and has not complained of a headache. She is normally very mentally sharp and alert. The patient slept in this morning until between 9 and 10 and when she woke up, her noticed that she seemed very confused. She was oriented only to herself and he told the medics he could not even get her to sit up in bed. Medics state they have not been able to uncover any focal deficits. The patient's neurologic exam when they picked her up, other than being oriented to self only, seem to be intact. Her vitals have been normal including afebrile and her blood sugar was not low. The patient states she did feel as though she was confused when she woke up and she states she just still feels like she is not able to put thoughts together like she normally would. She denies any weakness in any 1 side or 1 extremity. Medics report the patient's speech has been clear. Patient denies any pain anywhere. She does remember having some gastrointestinal upset. She denies any neck pain or headache. No dysuria. No other complaints at this time. Medics do report that the patient condition has improved over the course of their transport. 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: Other HEENT: Other - Present Medications Home Medications: Ambulatory Orders Medication Instructions Recorded Confirmed Lisinopril [Zestril] 10 mg PO DAILY PM 05/10/22 04/25/23 Acyclovir 400 mg PO DAILY PRN 04/25/23 04/26/23 Meloxicam 15 mg PO DAILY 04/25/23 04/25/23 Montelukast [Singulair] 10 mg PO DAILY 04/25/23 04/25/23 Albuterol Sulf [Ventolin Hfa 2 puffs PO Q6H PRN 04/26/23 04/26/23 Inhaler] Azelastine HCl 1 - 2 spr NS BID 04/26/23 04/26/23 Estradiol [Estrace] 0.5 mg PO DAILY 04/26/23 04/26/23 Fluticasone Propion/Salmeterol 1 each IH BID 04/26/23 04/26/23 [Wixela 500-50 Inhub] Progesterone, Micronized 100 mg PO DAILY 04/26/23 04/26/23 [Prometrium] Rosuvastatin Calcium [Crestor] 5 mg PO HS 04/26/23 04/26/23 - Allergies Allergies/Adverse Reactions: Allergies Allergy/AdvReac Type Severity Reaction Status Date / Time No Known Drug Allergies Allergy Verified 04/25/23 11:02 - Social History Does the pt smoke?: No Smoking Status: Never smoker Does the pt drink ETOH?: No Does the pt have substance abuse?: No - Immunizations Immunizations are current?: Yes - POLST Patient has POLST: No PD ED PE NORMAL - Vitals Vital signs reviewed: Yes - General General: No acute distress, Well developed/nourished, Other (Alert, articulate and conversant, oriented to self.) - HEENT HEENT: Atraumatic, PERRL, EOMI, Moist mucous membranes - Neck Neck: Supple, no meningeal sign - Cardiac Cardiac: RRR, No murmur - Respiratory Respiratory: No respiratory distress, Clear bilaterally - Abdomen Abdomen: Soft, Non tender, Non distended - Back Back: No spinal TTP - Derm Derm: Normal color, Warm and dry, No rash - Extremities Extremities: No deformity, No edema - Neuro Neuro: receptionist clerk 2-12 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 The patient is oriented to self but recognizes that she is not thinking clearly as usual.) - Psych Psych: Normal mood, Normal affect Results - Vitals Vitals: Oxygen O2 Source Room air - Labs Labs: Laboratory Tests 04/25/23 04/25/23 04/25/23 11:15 11:32 11:32 WBC 13.6 H RBC 4.38 Hgb 13.7 Hct 42.2 MCV 96.3 MCH 31.3 H MCHC 32.5 RDW 13.2 Plt Count 300 MPV 8.4 Neut # (Auto) 10.8 H Lymph # (Auto) 1.5 [place] # (Auto) 1.2 H Eos # (Auto) 0.0 Baso # (Auto) 0.1 Absolute Nucleated RBC 0.00 Nucleated RBC % 0.0 Sodium 134 L Potassium 3.6 Chloride 98 L Carbon Dioxide 27 Anion Gap 9.0 BUN 11 Creatinine 0.7 Estimated GFR (MDRD) 82 L Glucose 118 H Lactic Acid Calcium 8.9 Total Bilirubin 0.5 AST 16 ALT 14 Alkaline Phosphatase 59 Total Protein 6.9 Albumin 4.1 Globulin 2.8 Albumin/Globulin Ratio 1.5 Lipase 39 Urine Color Urine Clarity Urine pH Ur Specific [place] Urine Protein Urine Glucose (UA) Urine Ketones Urine Occult Blood Urine Nitrite Urine Bilirubin Urine Urobilinogen Ur Leukocyte Esterase Urine RBC Urine WBC Ur Squamous Epith Cells Urine Bacteria Urine Casts Urine Mucus Ur Microscopic Review Urine Culture Comments Nasal Adenovirus (PCR) NOT DETECTED Nasal B. parapertussis DNA (PCR) NOT DETECTED Nasal Coronavir 229E PCR NOT DETECTED Nasal Coronavir HKU1 PCR NOT DETECTED Nasal Coronavir NL63 PCR NOT DETECTED Nasal Coronavir OC43 PCR NOT DETECTED Nasal Enterovir/Rhinovir PCR NOT DETECTED Nasal Influenza B PCR NOT DETECTED Nasal Influenza A PCR NOT DETECTED Nasal Parainfluen 1 PCR NOT DETECTED Nasal Parainfluen 2 PCR NOT DETECTED Nasal Parainfluen 3 PCR NOT DETECTED Nasal Parainfluen 4 PCR NOT DETECTED Nasal RSV (PCR) NOT DETECTED Nasal B.pertussis DNA PCR NOT DETECTED Nasal C.pneumoniae (PCR) NOT DETECTED Luis Human Metapneumo PCR NOT DETECTED Nasal M.pneumoniae (PCR) NOT DETECTED Nasal SARS-CoV-2 (PCR) NOT DETECTED 04/25/23 04/25/23 11:32 12:45 WBC RBC Hgb Hct MCV MCH MCHC RDW Plt Count MPV Neut # (Auto) Lymph # (Auto) [place] # (Auto) Eos # (Auto) Baso # (Auto) Absolute Nucleated RBC Nucleated RBC % Sodium Potassium Chloride Carbon Dioxide Anion Gap BUN Creatinine Estimated GFR (MDRD) Glucose Lactic Acid 1.7 Calcium Total Bilirubin AST ALT Alkaline Phosphatase Total Protein Albumin Globulin Albumin/Globulin Ratio Lipase Urine Color YELLOW Urine Clarity CLEAR Urine pH 6.5 Ur Specific [place] 1.020 Urine Protein NEGATIVE Urine Glucose (UA) NEGATIVE Urine Ketones 40 H Urine Occult Blood SMALL H Urine Nitrite NEGATIVE Urine Bilirubin NEGATIVE Urine Urobilinogen 0.2 (NORMAL) Ur Leukocyte Esterase NEGATIVE Urine RBC 6-10 H Urine WBC 0-3 Ur Squamous Epith Cells FEW Squamous Urine Bacteria Few Urine Casts 0-2 Granular Casts Urine Mucus Few Strands Ur Microscopic Review INDICATED Urine Culture Comments NOT INDICATED Nasal Adenovirus (PCR) Nasal B. parapertussis DNA (PCR) Nasal Coronavir 229E PCR Nasal Coronavir HKU1 PCR Nasal Coronavir NL63 PCR Nasal Coronavir OC43 PCR Nasal Enterovir/Rhinovir PCR Nasal Influenza B PCR Nasal Influenza A PCR Nasal Parainfluen 1 PCR Nasal Parainfluen 2 PCR Nasal Parainfluen 3 PCR Nasal Parainfluen 4 PCR Nasal RSV (PCR) Nasal B.pertussis DNA PCR Nasal C.pneumoniae (PCR) Luis Human Metapneumo PCR Nasal M.pneumoniae (PCR) Nasal SARS-CoV-2 (PCR) - Rads (name of study) CT head Relevant Findings:: Final report received, See rad report (neg) CTA head/neck Relevant Findings:: Final report received, See rad report (neg) MR brain Relevant Findings:: Final report received, See rad report (neg) PD Medical Decision Making - ED course Complexity details: reviewed results, re-evaluated patient, considered differential, d/w patient ED course: The patient was articulate and seem to be aware of the fact that she was not thinking as clearly as usual. She was worked up with labs, EKG, respiratory panel, and initially, head CT and CTAs. Initial work-up showed a white blood cell count of 13.6 but otherwise negative. The patient's respiratory PCR panel and urinalysis were negative. Her ER abdominal panel was unremarkable. The patient CT scans including noncontrast and CTAs of the head and neck were negative. I discussed the case with Dr. Washington, who was on-call for the telestroke neurology service. She stated that the symptoms were not clear-cut CVA She did not feel that the patient should have tPA/TNK, in part because she was out of the time window, but also because the patient did not with certainty have cerebral ischemia. She recommended continue with the plan to send the patient to MRI, which I had already ordered. She stated that if the patient did not have any ischemic findings on MRI, then we should assume delirium. MRI was done and negative. I did reevaluate the patient from time to time throughout her stay in the emergency department and while she had not worsened, she still continued to have confusion and inability to complete her thoughts. I discussed the case with Dr. Hedrick, who agreed to admit the pt for observation. Pt and are agreeable to this plan. Departure - Departure Disposition: ED Place in Observation Clinical Impression: Delirium Condition: Fair Discharge Date/Time: 04/25/23 18:33
[2023-04-25 11:41] LABS: BASOPHILS # (AUTO) 0.1 10^3/uL (0.0-0.1); BASOPHILS % (AUTO) 0.5 %; EOSINOPHILS % (AUTO) 0.1 %; HCT - HEMATOCRIT 42.2 % (37.0-47.0); HGB - HEMOGLOBIN 13.7 g/dL (12.0-16.0); LYMPHOCYTES # (AUTO) 1.5 10^3/uL (1.5-3.5); LYMPHOCYTES % (AUTO) 10.9 %; MEAN CORPUSCULAR HEMOGLOBIN 31.3 pg (27.0-31.0); MEAN CORPUSCULAR HGB CONC 32.5 g/dL (32.0-36.0); MEAN CORPUSCULAR VOLUME 96.3 fL (81.0-99.0); MEAN PLATELET VOLUME 8.4 fL (7.9-10.8); MONOCYTES # (AUTO) 1.2 10^3/uL (0.0-1.0); MONOCYTES % (AUTO) 8.4 %; NEUTROPHILS # (AUTO) 10.8 10^3/uL (1.5-6.6); NEUTROPHILS % (AUTO) 79.5 %; PLT - PLATELET COUNT 300 10^3/uL (130-450); RED BLOOD COUNT 4.38 10^6/uL (4.20-5.40); RED CELL DISTRIBUTION WIDTH 13.2 % (12.0-15.0); WHITE BLOOD COUNT 13.6 x10^3/uL (4.8-10.8)
[2023-04-25 11:58] LABS: ALBUMIN 4.1 g/dL (3.2-5.5); ALBUMIN/GLOBULIN RATIO 1.5 (1.0-2.2); BILIRUBIN,TOTAL 0.5 mg/dL (0.2-1.0); CALCIUM 8.9 mg/dL (8.5-10.3); CREATININE 0.7 mg/dL (0.6-1.3); POTASSIUM 3.6 mmol/L (3.5-4.5); TOTAL PROTEIN 6.9 g/dL (6.4-8.9)
[2023-04-25 12:38] LABS: B. PARAPERTUSSIS- RESP PCR PAN NOT DETECTED; B. PERTUSSIS- RESP PCR PANEL NOT DETECTED; C. PNEUMONIAE- RESP PCR PANEL NOT DETECTED; CORONAVIRUS 229E-RESP PCR NOT DETECTED; CORONAVIRUS HKU1-RESP PCR NOT DETECTED; CORONAVIRUS NL63-RESP PCR NOT DETECTED; CORONAVIRUS OC43-RESP PCR NOT DETECTED; HUMAN METAPNEUMOVIRUS NOT DETECTED; INFLUENZA A- RESP PCR PANEL NOT DETECTED; INFLUENZA B - RESP PCR PANEL NOT DETECTED; M. PNEUMONIAE- RESP PCR PANEL NOT DETECTED; PARAINFLUENZA VIRUS 1 NOT DETECTED; PARAINFLUENZA VIRUS 2 NOT DETECTED; PARAINFLUENZA VIRUS 3 NOT DETECTED; PARAINFLUENZA VIRUS 4 NOT DETECTED; RHINOVIRUS/ENTEROVIRUS NOT DETECTED; RSV- RESP PCR PANEL NOT DETECTED; SARS-CoV-2 -RESP PCR PANEL NOT DETECTED
[2023-04-25 13:03] LABS: BILIRUBIN,URINE NEGATIVE (NEGATIVE); GLUCOSE, URINE (UA) NEGATIVE (NEGATIVE); KETONES,URINE (UA) 40 mg/dL (NEGATIVE); LEUKOCYTE ESTERASE, URINE NEGATIVE (NEGATIVE); NITRITE,URINE NEGATIVE (NEGATIVE); OCCULT BLOOD,URINE SMALL (NEGATIVE); PH,URINE 6.5 PH (5.0-7.5); PROTEIN,URINE NEGATIVE (NEGATIVE); UROBILINOGEN,URINE 0.2 (NORMAL) E.U./dL (NORMAL)
--- NOTE | 2023-04-25 13:14 | CT Report ---
PROCEDURE: HEAD WO INDICATIONS: aloc TECHNIQUE: Noncontrast 4.5 mm thick angled axial sections acquired from the foramen magnum to the vertex. For r adiation dose reduction, the following was used: automated exposure control, adjustment of mA and/or kV according to patient size. COMPARISON: None. FINDINGS: Image quality: Excellent. CSF spaces: Basal cisterns are patent. No extra-axial fluid collections. Ventricles are normal in size and shape. Brain: No midline shift. No intracranial masses or hemorrhage. Mild age-related global volume loss. Mild intracranial atherosclerotic vascular calcifications. Villalobos-white matter interface is normal. Skull and face: Calvarium and visualized facial bones are intact, without suspicious lesions. Sinuses: Visualized sinuses and mastoids are clear. IMPRESSION: No acute intracranial pathology. Reviewed by: Juan Banerjee MD on 04/25/2023 1:12 PM PST Approved by: Juan Banerjee MD on 04/25/2023 1:12 PM PST Station ID: [id number]
--- NOTE | 2023-04-25 13:17 | CT Report ---
PROCEDURE: CT Angio Head/Neck INDICATIONS: aloc, aphasia TECHNIQUE: After the administration of intravenous contrast, 1 mm thick sections acquired from the aortic arch t hrough the [place] of [place]. 3-dimensional ujdciss-fcjhuomuq-exksqpvdjd (MIP) and/or volume renderin g reformats were acquired of the central intracranial vasculature and neck separately. For radiation dose reduction, the following was used: automated exposure control, adjustment of mA and/or kV acco rding to patient size. CONTRAST: 80 cc Isovue 300 COMPARISON: None. FINDINGS: Image quality: Diagnostic. HEAD CT: Please refer to separately dictated CT of the head. HEAD CT ANGIOGRAPHY: Anterior circulation: Intracranial internal carotid arteries are normal in size and flow. The flow within the paired anterior cerebral arteries is normal and symmetric. The flow within the middle cer ebral arteries is normal and symmetric. The anterior communicating artery is seen. No aneurysms are seen. Posterior circulation: Visualized portions of the vertebral arteries demonstrate normal caliber, and join to form a normal appearing basilar artery. origin of the right VP DIRECTOR OF CREATIVE STRATEGY. Flow within the post erior cerebral arteries is normal and symmetric. No aneurysms are seen. NECK CT ANGIOGRAPHY: Carotid system: The great vessels demonstrate a conventional anatomy as they arise from the aortic a rch. The origins of the common carotid arteries appear patent. The common carotid arteries demonstr ate normal caliber and courses. The bifurcation regions are both widely patent. The internal caroti d arteries demonstrate normal calibers and courses. Posterior circulation: The origins of the vertebral arteries both appear widely patent. The more de la paz perior extracranial portions of both vertebral arteries also demonstrate normal courses and calibers. They join to form a normal appearing basilar artery. Soft tissues: Visualized neck soft tissues demonstrate no suspicious abnormalities. Biapical pleura l-parenchymal scarring. Bones: No suspicious bony lesions. Degenerative changes of the cervical spine with mild reversal of the normal cervical lordosis centered at C4-C5. IMPRESSION: The arteries of the head and neck are patent without hemodynamically significant stenosis, large vess el occlusion, aneurysm or AVM. The estimate of stenosis included in the report of the imaging study was calculated using the NASCET method Reviewed by: Juan Banerjee MD on 04/25/2023 1:16 PM PST Approved by: Juan Banerjee MD on 04/25/2023 1:16 PM PST Station ID: [id number]
[2023-04-25 13:27] LABS: CLARITY,URINE CLEAR (CLEAR)
[2023-04-25 13:39] LABS: WBC,URINE 0-3 /HPF (0-5)
[2023-04-25 13:40] LABS: BACTERIA,URINE Few /HPF (None Seen); CASTS, URINE 0-2 Granular Casts /LPF; MUCUS,URINE Few Strands; SQUAMOUS EPITHELIAL CELL,UR FEW Squamous (<= Few)
[2023-04-25] MEDS ORDERED: iohexoL-300 100 ML VIAL IVP ONE (14:15)
--- NOTE | 2023-04-25 16:02 | MRI Report ---
PROCEDURE: BRAIN WO INDICATIONS: aphasia TECHNIQUE: Noncontrast axial T1 spin echo, axial T2 fast spin echo, sagittal and axial FLAIR, coronal T2 fast sp in echo, axial gradient echo, axial diffusion and ADC through the brain. COMPARISON: Correlation is made with CT examinations performed earlier in the day. FINDINGS: Image quality: Excellent. CSF Spaces: Basal cisterns are patent. No extra-axial fluid collections. Ventricles are normal in size and shape. Brain: No intracranial masses or hemorrhage. Villalobos/white matter interface is normal. Brainstem appe ars normal. Diffusion-weighted images demonstrate no acute ischemic insult. No chronic ischemic ins ults. Normal intravascular flow voids are present. Skull and face: Calvarium has normal marrow signal. Orbits appear normal. Sinuses: Sinuses and mastoids are clear. IMPRESSION: No findings of acute or subacute infarction are seen. Unremarkable noncontrast brain MRI for age. Reviewed by: Danielito Lundberg MD on 04/25/2023 3:00 PM [facility] Approved by: Danielito Lundberg MD on 04/25/2023 3:00 PM [facility] Station ID: [id number]
[2023-04-25] MEDS ORDERED: ONDANSETRON 4 MG/2 ML VIAL IVP PRN (17:20)
[2023-04-25] MEDS ORDERED: SODIUM CHLORIDE FLUSH 0.9% 10 ML SYRINGE IVP PRN (17:20)
[2023-04-25] MEDS ORDERED: ACETAMINOPHEN 325 MG TABLET PO PRN (17:20)
[2023-04-25] MEDS ORDERED: lisinopriL 5 MG TABLET PO SCH (17:35)
--- NOTE | 2023-04-25 17:42 | HISTORY & PHYSICAL EXAMINATION ---
Chief Complaint - Chief Complaint Chief Complaint: Confusion History of Present Illness - Admitted From Admitted From:: ED - History Obtained From History obtained from: ED provider and the patient and at bedside - History of Present Illness HPI Comment/Other: This is a 72-year-old female with history of HTN on Lisinopril and Hx asthma and GERD, she lives with her , she is usually independent, very sharp mentally and active gardening. For the last 1 to 2 days she has had viral-like symptoms with malaise, chills, low-grade fever of 100 (per the ) and mild nausea and diarrhea. She went to bed early yesterday and slept longer than usual today. When the went to wake her up today, she was very confused, did not recognize him and was so weak she could not sit up. She then and nausea and vomited. He called EMS, who noted that she had no focal deficits and slowly had slight improvement in her confusion en route. In the ER, she continued to have mild confusion for the 6 hours she has been in the ER getting work-up. Vital signs have been stable but she has an elevated white blood count of 13.6. There is no neck stiffness. Exam was unremarkable. Lactic acid normal, urinalysis normal, respiratory PCR normal. CT of head and CTA of head are negative. Telestroke was contacted by the ED physician. MRI was recommended which was done and was also negative. The Neurologist felt that this is delirium and that we need to just "wait it out". The ED provider then spoke to me about this patient to place her in observation status on the Hospialist service. 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 Older sister of heart disease. Another older sister has dementia. No natural children. Living arrangement: At home Living Situation: With spouse/s.o. 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 Never smoked. She drinks every night, either 1 beer or 1-2 gin cocktails nightly, never had alcohol withdrawal. - Substance History Use: Uses substance without health or social issues: Alcohol - POLST Patient has POLST: No Meds/Allgy - Home Medications Home Medications: Ambulatory Orders Medication Instructions Recorded Confirmed Lisinopril [Zestril] 10 mg PO DAILY PM 05/10/22 04/25/23 Acyclovir 400 mg PO DAILY 04/25/23 04/25/23 Meloxicam 15 mg PO DAILY 04/25/23 04/25/23 Montelukast [Singulair] 10 mg PO DAILY 04/25/23 04/25/23 - Allergies Allergies/Adverse Reactions: Allergies Allergy/AdvReac Type Severity Reaction Status Date / Time No Known Drug Allergies Allergy Verified 04/25/23 11:02 Review of Systems - Constitutional Constitutional: reports: Fatigue, Fever, Malaise, Weakness - Neurological Neurological: reports: Memory problems - All Other Systems All Other Systems: reports: Reviewed and negative, Other (Recent tracvel to [facility] and [facility]. No exposure to sick contacts.) Exam - Vital Signs Reviewed Vital Signs: Yes Vital Signs: Vital Signs x48h Temp Pulse Resp BP Pulse Ox 04/25/23 14:00 69 18 122/64 99 04/25/23 12:51 92 119/63 04/25/23 12:50 90 17 99 04/25/23 10:52 35.9 C L 98 20 124/68 95 - Physical Exam General Appearance: positive: Alert, Mild distress (Frustrated over felling foggy) Eyes Bilateral: positive: Normal inspection, No lid inflammation ENT: positive: Dry mucous membranes Neck: positive: Nml inspection, No JVD Respiratory: positive: No respiratory distress, Breath sounds nml Cardiovascular: positive: Regular rate & rhythm, No murmur Abdomen: positive: Non-tender, No distention Skin: positive: Warm, Dry Extremities: positive: Non-tender, No pedal edema Neurologic/Psychiatric: positive: Other (Resting tremor of hands. Abn FNF exam. Normal and equal strength of upper and lower extrem.) Conclusion/Plan - Problem List (1) Delirium Conclusion/Plan: She is not on any sedating meds, illicit drugs or narcotics. Her labs are WNL. Neurologist did not recommend a spinal tap Most likely from a viral syndrome. She is also clinically dehydrated. There is also a Hx of daily alcohol use, which may be an underlying factor as well Plan: Monitor in Observation status IV fluids Neurochecks q4h, to assure she is improving Hold Melatonin Check TSH Begin Thiamine and a CIWA protocol (2) Elevated WBC count Conclusion/Plan: She has had 1-2 days of a viral syndrome. her U/A and Lactic aldo are normal, a CXR is pending and her WBC is mildly elevated. Plan: IV fluids Follow WBC and diff Await blood cx results and CXR (3) Tremor Conclusion/Plan: She has a tremor and dysequilibrium (abn FNF exam) There is a Hx of alcohol use daily. Plan: CIWA protocol with prn Ativan Thiamine daily - Lab Results Fish Bones: 04/25/23 11:32 04/25/23 11:32 - Diagnostic Imaging Results Diagnostic Imaging Results: positive: Final report reviewed
--- NOTE | 2023-04-25 18:41 | XRAY Report ---
PROCEDURE: Chest 1 View X-Ray INDICATIONS: chest pain TECHNIQUE: One view of the chest was acquired. COMPARISON: None. FINDINGS: Surgical changes and devices: None. Lungs and pleura: Mild hyperinflation. Chronic prominence of pulmonary interstitium. No focal consol idation. No pleural effusions or pneumothorax. Mediastinum: Mediastinal contours appear normal. Heart size is normal. Bones and chest wall: No suspicious bony lesions. Overlying soft tissues appear unremarkable. IMPRESSION: No acute cardiopulmonary process. Reviewed by: Carri Sun MD on 04/25/2023 6:40 PM PST Approved by: Carri Sun MD on 04/25/2023 6:40 PM [facility] Station ID: [id number]
[2023-04-25] MEDS: D5NS W/20 MEQ KCL 1,000 ML IV SCH (18:52)
[2023-04-25] MEDS ORDERED: LORazepam 2 MG/ML VIAL IVP PRN (19:45)
[2023-04-26] MEDS: SODIUM CHLORIDE FLUSH 0.9% 10 ML SYRINGE IVP SCH ×2 (00:06→10:57)
[2023-04-26 06:13] LABS: BASOPHILS # (AUTO) 0.1 10^3/uL (0.0-0.1); BASOPHILS % (AUTO) 0.6 %; EOSINOPHILS # (AUTO) 0.2 10^3/uL (0.0-0.7); EOSINOPHILS % (AUTO) 1.8 %; HCT - HEMATOCRIT 39.2 % (37.0-47.0); HGB - HEMOGLOBIN 12.9 g/dL (12.0-16.0); LYMPHOCYTES % (AUTO) 23.7 %; MEAN CORPUSCULAR HEMOGLOBIN 31.4 pg (27.0-31.0); MEAN CORPUSCULAR HGB CONC 32.9 g/dL (32.0-36.0); MEAN CORPUSCULAR VOLUME 95.4 fL (81.0-99.0); MEAN PLATELET VOLUME 8.9 fL (7.9-10.8); MONOCYTES # (AUTO) 0.8 10^3/uL (0.0-1.0); NEUTROPHILS # (AUTO) 5.3 10^3/uL (1.5-6.6); NEUTROPHILS % (AUTO) 63.5 %; PLT - PLATELET COUNT 315 10^3/uL (130-450); RED BLOOD COUNT 4.11 10^6/uL (4.20-5.40); RED CELL DISTRIBUTION WIDTH 13.3 % (12.0-15.0); WHITE BLOOD COUNT 8.4 x10^3/uL (4.8-10.8)
[2023-04-26 06:29] LABS: CALCIUM 8.2 mg/dL (8.5-10.3); CREATININE 0.5 mg/dL (0.6-1.3); MAGNESIUM 1.8 mg/dL (1.7-2.3); POTASSIUM 3.8 mmol/L (3.5-4.5)
[2023-04-26] MEDS: D5NS W/20 MEQ KCL 1,000 ML IV SCH (06:50)
[2023-04-26 08:11] LABS: THYROID STIMULATING HORMONE 1.15 uIU/mL (0.34-5.60)
[2023-04-26] MEDS ORDERED: THIAMINE 100 MG TABLET PO SCH (09:00)
[2023-04-26] MEDS ORDERED: MONTELUKAST 10 MG TABLET PO SCH (09:00)
[2023-04-26] MEDS ORDERED: ENOXAPARIN 40 MG/0.4 ML SYRINGE SUBQ SCH (09:00)
--- NOTE | 2023-04-26 13:56 | PHARMACY PROGRESS NOTE ---
- Best Possible Medication History Admit Date and Time: 04/25/23 1720 Processed by: Pharmacy Medication History completed: Yes Patient Interview: Completed Secondary Source(s): Spouse/Significant other, Insurance records ([facility] PERFORMED MED REC USING INSURANCE RECORDS, INTERVIEW WITH PT AND SPOUSE.) As the person ultimately responsible for medication therapy, providers are able to order a medication from an existing home medication list in [facility] via the "Reconcile Routine" prior to Confirmation of that medication by learning support services director. Such practice is discouraged except when the physician, in their clinical judgment, deems that a medical need exists for a medication without regard to previous use.
--- NOTE | 2023-04-26 15:37 | Discharge Plan ---
Discharge Plan Problem Reviewed?: Yes Disposition: Home, Self Care Condition: Fair Diet: Regular (Stay well hydrated. Drink liquids with electrolytes.) Activity Restrictions: Activity as Tolerated Shower Restrictions: No Driving Restrictions: Yes (No driving until your tremor improves) Assistance Devices: Walker Weight Bearing: Full Weight Health Concerns: You were hospitalized to treat dehydration that was caused by a viral syndrome. The viral syndrome and dehydration made you get confused. A tremor also began, which could be partly from alcohol withdrawal symptoms. You are being discharged home today and advised to stay well-hydrated, rest and if your symptoms do not improve in the next 48 hours, you will need rehab. Stop drinking alcohol daily. You should clean your mauricio pot to decrease chances of an infection spreading. Please see your PCP in the next 3-5 days. Plan of Treatment: Resume your usual medications. Care Goals: Improvement in symptoms and stabilization are the goals. Assessment: The patient and understand and are agreeable with the plan. Additional Instructions or Follow Up instructions: If you have new or worsening symptoms, call your PCP for advice or come to the ER. No Smoking: If you smoke, Please STOP! Call for help.
--- NOTE | 2023-04-26 15:39 | DISCHARGE SUMMARY ---
Discharge Summary Admit Date: 04/25/23 Discharge Date: 04/26/23 Discharging Provider: Dr Kristie Hedrick Primary Care Provider: JAYCE Choi Condition at Discharge: Fair Discharge Disposition: 01 Home, Self Care - HPI History of Present Illness: This is a 72-year-old female with history of HTN on Lisinopril and Hx asthma and GERD, she lives with her , she is usually independent, very sharp mentally and active gardening. For the last 1 to 2 days she has had viral-like symptoms with malaise, chills, low-grade fever of 100 (per the ) and mild nausea and diarrhea. She went to bed early yesterday and slept longer than usual today. When the went to wake her up today, she was very confused, did not recognize him and was so weak she could not sit up. She then and nausea and vomited. He called EMS, who noted that she had no focal deficits and slowly had slight improvement in her confusion en route. In the ER, she continued to have mild confusion for the 6 hours she has been in the ER getting work-up. Vital signs have been stable but she has an elevated white blood count of 13.6. There is no neck stiffness. Exam was unremarkable. Lactic acid normal, urinalysis normal, respiratory PCR normal. CT of head and CTA of head are negative. Telestroke was contacted by the ED physician. MRI was recommended which was done and was also negative. The Neurologist felt that this is delirium and that we need to just "wait it out". The ED provider then spoke to me about this patient to place her in observation status on the Hospialist service. - HOSPITAL COURSE Hospital Course: (1) Delirium She was not on any sedating meds, illicit drugs or narcotics. Her labs were WNL. Neurologist did not recommend a spinal tap. Neurol felt this was most likely delerium from a viral syndrome, and she is also clinically dehydrated. There was also a Hx of daily alcohol use, which may be have added to the problem. She was put on iv fluids, Melatonin was put on hold, and she had neurochecks q4h to assure she was improving, and she did. She was discharged the following day (2) Tremor She had developed a tremor on her first night and had abn FNF exam. Because there was a Hx of alcohol use daily, she was put on Thiamine daily and discharged on this. A CIWA protocol with prn Ativan was also ordered but she needed none. She was advised to stop alcohol intake. (3) Alcohol use As in #2 (4) Elevated WBC count This was presumed to be from her 1-2 days of a viral syndrome or from demargination from stress. Her U/A, CXR and Lactic Acid were normal. Blood cultures were neg at time of discharge. The WBC was normal the following day. - ALLERGIES Allergies/Adverse Reactions: Allergies Allergy/AdvReac Type Severity Reaction Status Date / Time No Known Drug Allergies Allergy Verified 04/25/23 11:02 - MEDICATIONS Home Medications: Ambulatory Orders Medication Instructions Recorded Confirmed Lisinopril [Zestril] 10 mg PO DAILY PM 05/10/22 04/25/23 Acyclovir 400 mg PO DAILY PRN 04/25/23 04/26/23 Meloxicam 15 mg PO DAILY 04/25/23 04/25/23 Montelukast [Singulair] 10 mg PO DAILY 04/25/23 04/25/23 Albuterol Sulf [Ventolin Hfa 2 puffs PO Q6H PRN 04/26/23 04/26/23 Inhaler] Azelastine HCl 1 - 2 spr NS BID 04/26/23 04/26/23 Estradiol [Estrace] 0.5 mg PO DAILY 04/26/23 04/26/23 Fluticasone Propion/Salmeterol 1 each IH BID 04/26/23 04/26/23 [Wixela 500-50 Inhub] Progesterone, Micronized 100 mg PO DAILY 04/26/23 04/26/23 [Prometrium] Rosuvastatin Calcium [Crestor] 5 mg PO HS 04/26/23 04/26/23 - PHYSICAL EXAM AT DISCHARGE General Appearance: positive: No acute distress, Alert Eyes Bilateral: positive: Normal inspection, EOMI ENT: positive: ENT inspection nml, No signs of dehydration Neck: positive: Nml inspection, No JVD Respiratory: positive: No respiratory distress, Breath sounds nml Cardiovascular: positive: Regular rate & rhythm, No murmur Abdomen: positive: Non-tender, No organomegaly, Nml bowel sounds, No distention Skin: positive: Warm, Dry Extremities: positive: Non-tender, No pedal edema Neurologic/Psychiatric: positive: Oriented x3, Motor nml, Other (Memory better) - LABS Result Diagrams: 04/26/23 05:29 04/26/23 05:29 - DIAGNOSTIC IMAGING Diagnostic Imaging Results: Final report reviewed - FOLLOW UP Follow Up: See PCP for hospital F/u. - TIME SPENT Time Spent in Discharge (Minutes): 26
[2023-04-26 16:39] VITALS: O2SAT 98
[2023-04-26 18:18] VITALS: BP 111/59
[2023-04-26] MEDS ORDERED: lisinopriL 5 MG TABLET PO SCH (21:00)
== END 2023-04-26 16:25 | disposition home or self-care (01) ==
LOC: EDUNIT# → ED 10:43 → MS3 17:20
PROVIDERS: ADMIT Internal Medicine; ATTEND Internal Medicine
DX: B34.9 Viral infection, unspecified (principal); R41.0 Disorientation, unspecified; E86.0 Dehydration; D72.829 Elevated white blood cell count, unspecified; I10 Essential (primary) hypertension; K21.9 Gastro-esophageal reflux disease without esophagitis; R25.1 Tremor, unspecified; F10.90 Alcohol use, unspecified, uncomplicated; E78.00 Pure hypercholesterolemia, unspecified; J45.909 Unspecified asthma, uncomplicated
CPT/HCPCS: 36415; 70450; 70496; 70498; 70551; 71045; 80048; 80053; 81001; 83605; 83690; 83735; 84443; 85025; 87040; 87633; 96360; 96361; 96372; 97162; 97166; 97530; 99285; A9270; G0378; J1650; Q9967; 81003; 87086

== ENCOUNTER 2023-08-24 15:18 | Outpatient (CLI) | payer MEDICARE ==
--- NOTE | 2023-08-24 17:29 | XRAY Report ---
PROCEDURE: Cervical Spine 2-3V INDICATIONS: NECK PAIN TECHNIQUE: 3 view(s) of the cervical spine were acquired. COMPARISON: None. FINDINGS: Bones: No fractures or dislocations to the C7 level. The lateral masses of C1 appear intact on the odontoid view. No suspicious bony lesions. Reversal of the normal cervical lordosis, centered at C4 . Severe disc height loss at C4-5, C5-6, C6-7. Mild disc height loss at C7-T1. Mild, multilevel facet arthrosis, most prominent at C5-6 and C6-7. Soft tissues: No prevertebral soft tissue swelling. IMPRESSION: Moderate to severe, multilevel degenerative disc disease and limited facet arthrosis. Reviewed by: Oscar Hagen MD on 08/24/2023 5:27 PM PDT Approved by: Oscar Hagen MD on 08/24/2023 5:27 PM PDT Station ID: [id number]
== END 2023-08-24 15:19 | disposition home or self-care (01) ==
LOC: DI 15:18
PROVIDERS: ATTEND Registered Nurse
DX: M50.321 Other cervical disc degeneration at C4-C5 level (principal); M47.812 Spondylosis without myelopathy or radiculopathy, cervical region

== ENCOUNTER 2024-01-27 16:51 | Emergency (ER) | payer MEDICARE ==
[2024-01-27] MEDS: lidocaine 1% 20 ML MDV SUBQ ONE (17:46)
--- NOTE | 2024-01-27 18:48 | ED Physician Documentation ---
History of Present Illness - Stated complaint Stated Complaint: FALL - Chief complaint Chief Complaint: Laceration - Additonal information Additional information: Patient is a 73-year-old female presenting to the emergency department after a fall while walking out of a store. Patient fell on her left knee and left forearm. She denies hitting her head she denies losing consciousness. Patient is not on any blood thinners. She notes she was able to get up and walk after the injury. Patient sustained laceration to left knee and abrasions to left forearm. She notes she is right-handed. 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 HEENT: Other - Present Medications Home Medications: Ambulatory Orders Medication Instructions Recorded Confirmed Acyclovir 400 mg PO DAILY PRN 04/25/23 09/25/23 Meloxicam 15 mg PO DAILY 04/25/23 09/25/23 Montelukast [Singulair] 10 mg PO DAILY 04/25/23 09/25/23 Albuterol Sulf [Ventolin Hfa 2 puffs PO Q6H PRN 04/26/23 09/25/23 Inhaler] Azelastine HCl 1 - 2 spr NS BID 04/26/23 09/25/23 Estradiol [Estrace] 0.5 mg PO DAILY 04/26/23 09/25/23 Fluticasone Propion/Salmeterol 1 each IH BID 04/26/23 09/25/23 [Wixela 500-50 Inhub] Progesterone, Micronized 100 mg PO DAILY 04/26/23 09/25/23 [Prometrium] Rosuvastatin Calcium [Crestor] 5 mg PO HS 04/26/23 09/25/23 Cholecalciferol [Vitamin D3] 5,000 units PO 09/25/23 Losartan Potassium 25 mg PO 09/25/23 - Allergies Allergies/Adverse Reactions: Allergies Allergy/AdvReac Type Severity Reaction Status Date / Time No Known Drug Allergies Allergy Verified 01/27/24 17:04 - Social History Does the pt smoke?: No Smoking Status: Never smoker Does the pt drink ETOH?: No Does the pt have substance abuse?: No - Immunizations Immunizations are current?: Yes - POLST Patient has POLST: No PD ED PE NORMAL - Vitals Vital signs reviewed: Yes - General General: Alert and oriented X 3 - HEENT HEENT: Atraumatic - Neck Neck: Supple, no meningeal sign, C-Spine cleared by NEXUS criteria - Cardiac Cardiac: RRR, No murmur, No gallop, No rub - Respiratory Respiratory: No respiratory distress, Clear bilaterally - Derm Derm: Other - Neuro Neuro: Alert and oriented X 3 Eye Opening: Spontaneous Motor: Obeys Commands Verbal: Oriented GCS Score: 15 - Free text exam Free text exam: Left knee has full range of motion with good capillary refill in distal digits and full sensation throughout. No significant swelling. There is tenderness to fibula and tibia of left knee. No obvious deformity other than laceration to left knee. Left hand shows good capillary refill to digits 1 through 5. Handgrip strength intact. Radial pulse 2+. FUll range of motion of left elbow and left wrist. Results - Vitals Vitals: Vital Signs - 24 hr 01/27/24 01/27/24 01/27/24 17:02 18:20 18:30 Temperature 36.8 C Heart Rate 92 88 89 Respiratory 16 16 16 Rate Blood Pressure 142/73 H 97/65 132/70 H O2 Saturation 100 95 98 Oxygen O2 Source Room air Procedures - Laceration (location) left knee Length in cm: 4 Wound type: Linear Neurovascular status: Sensory intact, Motor intact, Vascular intact Tendon involvement: Tendon intact Wound preparation: Irrigated copiously NS Skin layer closure: Nylon, Sutures - enter # Other: Patient tolerated well, No complications, Dressing applied, Tetanus UTD PD Medical Decision Making - ED course Complexity details: reviewed old records ED course: Patient is a 73-year-old female who fell while walking out of a store. She denies hitting her head she denies lose consciousness and she is not on any blood thinners. Patient has pain on palpation to anterior left knee around tibia and fibula. Patient refuses x-ray here in emergency department. She also sustained laceration to anterior left knee with active bleeding on examination. 2 lacerations noted to left forearm 2 cm and 1 cm in size. Given forearm lacerations and skin is thin and difficult to suture will use Steri-Strips to close and wrapped while here in emergency department. Patient laceration to left knee with significant with and over the joint concern for worsening laceration and contamination. It is cleaned thoroughly here in emergency department. Patient was instructed on risk of open fracture but she is agreeable and declines any imaging. Patient also offered lidocaine for numbing medication for laceration repair but she declines as well. Patient given 8 sutures placed to left knee during suturing patient had episode of lightheadedness and lost consciousness for less than 30 seconds. Vitals were taken shortly after and she was slightly hypotensive at 97 SBP. Patient given ice pack and fluids orally with apple juice and water here in emergency department. Patient tolerated this well and feels safe for discharge home. Departure - Departure Disposition: 01 , Self Care Clinical Impression: Laceration of left knee, Abrasion of left forearm, initial encounter, Fall, Laceration Condition: Good Instructions: ED Laceration All Comments: Come back for any signs of infection which would include: Redness, swelling, drainage, increased pain, or fevers. You can wash it soap and water. Keep it covered and moist with bacitracin ointment which is available over the counter; avoid neosporin. Follow-up with your physician in [7-10] days for suture removal.Return with any worsening pain to your knee he did decline x-rays to your left knee if you sustained a fracture there is concern for possible infection of this fracture please return with any worsening pain inability to walk on it. Follow-up with your PCP to have suture removal and wound reevaluation. Forms: PCP List
[2024-01-27 18:50] VITALS: BP 132/70; O2SAT 98
== END 2024-01-27 19:03 | disposition home or self-care (01) ==
LOC: ED 16:51
DX: S81.012A Laceration without foreign body, left knee, initial encounter (principal); S50.812A Abrasion of left forearm, initial encounter; W18.30XA Fall on same level, unspecified, initial encounter; Y93.01 Activity, walking, marching and hiking; Y92.512 Supermarket, store or market as the place of occurrence of the external cause; E78.00 Pure hypercholesterolemia, unspecified; Z79.899 Other long term (current) drug therapy
CPT/HCPCS: 12002; 99281; 99283